=== PATIENT | male | born 1950 | race Caucasian/White ===

== ENCOUNTER 2017-05-22 05:58 | Emergency (ER) | payer MEDICARE ==
[~2017-05-22] VITALS: Ht 172.7 cm; Wt 122.5 kg
[~2017-05-22 05:58] MED LIST: CIPRO 500MG TA500 MG PO; CIPROFLOXACIN500 MG PO; FLEXERIL10 MG PO; FLOMAX0.4 MG PO; KEFLEX 250MG.250 MG PO; KEFLEX750 MG PO; LISINOPRIL 20MG20 MG PO; LOPRESSOR50 MG PO; METHADONE HCL5 MG PO; MINOCYCLINE 10100 MG PO; MOTRIN 400MG.400 MG PO; RESTORIL 15MG C15 MG PO; TAMSULOSIN HYD0.4 MG PO; TYLENOL ES500 M1 PO; XANAX 0.25MG0.25 MG PO; XANAX 1MG TABLET1 MG PO; ZITHROMAX Z PA250 MG PO
--- OUTSIDE RECORDS SUMMARY | 2017-05-22 06:07 | External Medical Summary Rpt | CCD ---
Author Author , SHANA SALDANA Address Unknown Phone Care Team Providers Care Hoisting Engineer Pile Driving Name Role Phone Steven Mao MD, Unavailable Unavailable Steven Mao MD Purpose Continuity of Care Document - 11-25-2012 through 2016 Problems Code Diagnosis DOS Provider Status 486 Lobar [place] pneumonia [facility] [id number] Hemoptysis [facility] I50.9 HEART FAILURE, UNSPECIFIED J40 BRONCHITIS, NOT SPECIFIED ACUTE OR CHRONIC N45.1 EPIDIDYMITI S Allergies, Adverse Reactions, Alerts Type Drug Allergy Adverse Reaction to Substance Substance Reaction Severity Pregabalin [id number]-IQUX/THROAT Severe Medications Na ND Rx Da Fi Fi Am Da Di Ph RX Ph St me C No te ll ll ou ys ag ar # ys at rm s nt no ma ic us Or Da si cy ia de te s n re d IP 00 07 0 No RA 48 -1 T- 70 0- Lo AL 20 20 ng BU 10 13 er T 1 0. Ac 5- ti 3( ve 2. 5) MG /3 ML ME 00 07 0 No TH 05 -1 AD 48 0- Lo ON 55 20 ng E 42 13 er HC 4 L Ac 10 ti ve MG TA BL ET ON 00 07 0 No DA 64 -1 NS 16 0- Lo ET 08 20 ng RO 02 13 er N 5 HC Ac L ti 4 ve MG /2 ML AL FU 00 07 0 No RO 40 -1 SE 96 0- Lo UT 10 20 ng DE 21 13 er 0 10 Ac 0 ti MG ve /1 0 ML AL 63 07 0 No PI 73 -1 RI 90 0- Lo N 43 20 ng 81 40 13 er 1 MG Ac ti CH ve EW AB LE TA BL ET CE 00 07 0 No FT 40 -0 RI 97 9- Lo AX 33 20 ng ON 30 13 er E 4 1 Ac GM ti ve AL So 00 07 0 No d 07 -0 Ch 47 9- Lo lo 10 20 ng ri 11 13 er de 3 Ac 0. ti 9% ve 50 ML Ad v AZ 00 07 1 No IT 40 -0 HR 90 9- Lo OM 14 20 ng YC 41 13 er IN 1 Ac I. ti V. ve 50 0 MG AL SO 00 07 1 No DI 40 -0 UM 97 9- Lo 98 20 ng CH 30 13 er LO 9 RI Ac DE ti ve 0. 9% SO RICKEY TI ON ON 00 07 0 No DA 64 -0 NS 16 9- Lo ET 08 20 ng RO 02 13 er N 5 HC Ac L ti 4 ve MG /2 ML AL MA 00 07 0 No PA 90 -0 P 41 9- Lo 32 98 20 ng 5 26 13 er MG 1 Ac TA ti BL ve ET TR 00 05 0 No IP 16 -2 LE 80 2- Lo 01 20 ng AN 20 13 er TI 9 BI Ac OT ti IC ve OI NT ME NT Vital Signs 01-13-2013 17:20 Name Value Interpretat Reference Comment ion Range Body 98.1 [degF] Temperature BP 52 mm[Hg] Diastolic BP Systolic 94 mm[Hg] Heart 100 /min Rate/Pulse 01-13-2013 16:00 Name Value Interpretat Reference Comment ion Range O2% 95 % Respiratory 20 /min Rate 01-12-2013 23:41 Name Value Interpretat Reference Comment ion Range Height 172.72 cm Weight 117.936 kg Measured 01-12-2013 21:31 Name Value Interpretat Reference Comment ion Range Body 101 [degF] Temperature BP 118 mm[Hg] Diastolic BP Systolic 140 mm[Hg] Heart 128 /min Rate/Pulse O2% 96 % Respiratory 28 /min Rate Weight 0 [oz_av] Measured 11-25-2012 03:32 Name Value Interpretat Reference Comment ion Range BP 74 mm[Hg] Diastolic BP Systolic 127 mm[Hg] Heart 103 /min Rate/Pulse O2% 95 % Respiratory 20 /min Rate Results Labs Lab Lab Date Result Refere Interp Status Commen Order Detail nces retati t Range on ARTERIAL BLOOD GAS (01-13-2013 15:14) ARTERIA 7.48 7.35-7. complet L PH 013 MMOL/L 45 ed 15:14 ARTERIA 34.0 35.0-45 complet L PCO2 013 MMHG .0 ed 15:14 ARTERIA 60.9 80-100 complet L PO2 013 MMHG ed 15:14 ARTERIA 24.7 22.0-26 complet L HCO3 013 MMOL/L .0 ed 15:14 ARTERIA 25.7 23-27 complet L TCO2 013 MMOL/L ed 15:14 Base 1.2 -2.4-+2 complet excess 013 MMOL/L .3 ed BldA-sC 15:14 nc ARTERIA 94.0 % 90-100 complet L O2 013 ed SAT 15:14 OXYGEN 28% complet 013 ed 15:14 Arteria N/A complet l 013 ed patency 15:14 Wrist a SOURCE R complet 013 BRACHIA ed 15:14 L ARTERIAL BLOOD GAS (01-13-2013 11:04) ARTERIA 7.44 7.35-7. complet L PH 013 MMOL/L 45 ed 11:04 ARTERIA 29.3 35.0-45 complet L PCO2 013 MMHG .0 ed 11:04 ARTERIA 72.6 80-100 complet L PO2 013 MMHG ed 11:04 ARTERIA 19.6 22.0-26 complet L HCO3 013 MMOL/L .0 ed 11:04 ARTERIA 20.5 23-27 complet L TCO2 013 MMOL/L ed 11:04 Base -4.5 -2.4-+2 complet excess 013 MMOL/L .3 ed BldA-sC 11:04 nc ARTERIA 95.9 % 90-100 complet L O2 013 ed SAT 11:04 OXYGEN 3LPM complet 013 ed 11:04 Arteria N/A complet l 013 ed patency 11:04 Wrist a SOURCE R complet 013 BRACHIA ed 11:04 L Glucose BldC Glucomtr-[facility] (01-13-2013 10:50) Glucose 170 70-110 complet BldC 013 mg/dl ed Glucomt 10:50 r-nc BNP Bld-[facility] (01-13-2013 10:44) BNP 140 0-100 complet Bld-mCn 013 pg/mL ed c 10:44 D Dimer PPP (01-13-2013 10:44) D Dimer 01-13- 420 0-400 High complet PPP 013 ng/mL alert ed 10:44 CBC with AUTO DIFF (01-13-2013 06:35) WBC # 07-10-2 22.8 4.8-10. complet Bld 013 K/MM3 8 ed Auto 06:35 RBC # 10-2 5.31 4.6-6.2 complet Bld 013 M/mm3 ed Auto 06:35 Hgb 10-2 15.1 14.1-18 complet Bld-mCn 013 g/dL .0 ed c 06:35 Hct Fr 47.0 % 42.0-52 complet Bld 013 .0 ed 06:35 MCV RBC 88.5 fl 82.2-97 complet 013 .8 ed 06:35 MCH RBC 28.4 pg 27-31.2 complet Qn 013 ed Auto 06:35 MEAN 32.1 31.8-35 complet CORPUSC 013 g/dl .4 ed ULAR 06:35 HGB CONC RDW RBC 01-13- 14.7 % 11.5-17 complet Auto 013 .5 ed 06:35 Platele 01-13-2 112 142-424 complet t Bld 013 K/mm3 ed Ql 06:35 Manual Granulo 10-2 92.5 % 37.0-80 complet cytes 013 .0 ed Fr Bld 06:35 Auto LYMPH % 10-2 5.9 % 10-50 complet 013 ed 06:35 Monocyt 10-2 1.6 % 1.7-9.3 complet es Fr 013 ed Bld 06:35 Auto Granulo 07-10-2 21.1 1.3-8.0 complet cytes # 013 K/mm3 ed Bld 06:35 Auto Lymphoc -10-2 1.3 0.7-4.5 complet ytes Fr 013 K/mm3 ed Bld 06:35 Auto Monocyt -10-2 0.4 0.1-1.0 complet es # 013 K/mm3 ed Bld 06:35 Auto MYCOPLASMA IGM (RAPID) (01-12-2013 21:50) MYCOPLA NON-HAYLEE NONREAC complet SMA IGM 013 CTIVE TIVE ed 21:50 (RAPID) COMPREHENSIVE METABOLIC PANEL (01-12-2013 21:48) Glucose 132 74-106 complet 013 mg/dL ed Bld-mCn 21:48 c BUN 14 7-18 complet Bld-mCn 013 mg/dL ed c 21:48 Creat 1.6 0.8-1.3 complet SerPl-m 013 mg/dL ed Cnc 21:48 ESTIMAT 79 50-200 complet ED 013 ML/MIN ed CREATIN 21:48 INE CLEARAN CE GFR 44 Greater complet (ESTIMA 013 ML/MIN than ed KANWAL) 21:48 60 Sodium 137 136-145 complet SerPl-s 013 mmoL/L ed Cnc 21:48 Potassi 3.7 3.5-5.1 complet um 013 mmoL/L ed SerPl-s 21:48 Cnc Chlorid 100 98-107 complet e 013 mmoL/L ed SerPl-s 21:48 Cnc CO2 27 21.0-32 complet SerPl-s 013 mmoL/L .0 ed Cnc 21:48 Calcium 8.5 8.5-10. complet 013 mg/dL 1 ed SerPl-m 21:48 Cnc Prot 7.0 6.4-8.2 complet SerPl-m 013 gm/dL ed Cnc 21:48 Albumin 3.3 3.4-5.0 complet 013 gm/dL ed SerPl-m 21:48 Cnc Globuli 3.7 1.3-3.2 complet n 013 gm/dL ed Ser-mCn 21:48 c Albumin 0.9 UNK 1.1-1.8 complet /Glob 013 ed SerPl-m 21:48 Rto Bilirub 2.5 0.2-1.0 complet 013 mg/dL ed SerPl-m 21:48 Cnc AST 10 U/L 15-37 complet SerPl-c 013 ed Cnc 21:48 ALT 07-09-2 35 U/L 30-65 complet SerPl-c 013 ed Cnc 21:48 ALP 07-09-2 114 U/L 50-136 complet SerPl-c 013 ed Cnc 21:48 CBC with AUTO DIFF (01-12-2013 21:48) WBC # 07-09-2 18.0 4.8-10. complet Bld 013 K/MM3 8 ed Auto 21:48 RBC # 07-09-2 5.48 4.6-6.2 complet Bld 013 M/mm3 ed Auto 21:48 Hgb 07-09-2 16.5 14.1-18 complet Bld-mCn 013 g/dL .0 ed c 21:48 Hct Fr -09-2 49.1 % 42.0-52 complet Bld 013 .0 ed 21:48 MCV RBC -09-2 89.6 fl 82.2-97 complet 013 .8 ed 21:48 MCH RBC 09-2 30.2 pg 27-31.2 complet Qn 013 ed Auto 21:48 MEAN --2 33.7 31.8-35 complet CORPUSC 013 g/dl .4 ed ULAR 21:48 HGB CONC RDW RBC 09-2 13.5 % 11.5-17 complet Auto 013 .5 ed 21:48 Platele 07-09-2 150 142-424 complet t Bld 013 K/mm3 ed Ql 21:48 Manual MEAN 01-12-2 7.9 fl 7.4-10. complet PLATELE 013 4 ed T 21:48 VOLUME Granulo -09-2 90.7 % 37.0-80 complet cytes 013 .0 ed Fr Bld 21:48 Auto LYMPH % -09-2 5.3 % 10-50 complet 013 ed 21:48 Monocyt 07-09-2 3.0 % 1.7-9.3 complet es Fr 013 ed Bld 21:48 Auto Eosinop 07-09-2 0.8 % 0.1-12. complet hil Fr 013 0 ed Bld 21:48 Auto Basophi 07-09-2 0.2 % 0.1-2.0 complet ls Fr 013 ed Bld 21:48 Auto Granulo 07-09-2 16.3 1.3-8.0 complet cytes # 013 K/mm3 ed Bld 21:48 Auto Lymphoc 07-09-2 0.9 0.7-4.5 complet ytes Fr 013 K/mm3 ed Bld 21:48 Auto Monocyt 07-09-2 0.5 0.1-1.0 complet es # 013 K/mm3 ed Bld 21:48 Auto Eosinop 07-09-2 0.2 0.0-0.4 complet hil # 013 K/mm3 ed Bld 21:48 Auto Basophi 07-09-2 0.0 0-0.2 complet ls # 013 K/MM3 ed Bld 21:48 Auto Encounters Encounter Start End Date Code Location Performer Type Date Inpatient JULIA Fallon MD ([place]) 3 21:52 3 17:20 [facility] JENELLE Swenson ([place]) 3 03:03 3 03:33 [facility] Larry
--- OUTSIDE RECORDS SUMMARY | 2017-05-22 06:07 | External Medical Summary Rpt | CCD ---
Author Author , SHANA SALDANA Address Unknown Phone [email or web address] Care Team Providers Care Business Development Manager Name Role Phone Steven Mao MD, Unavailable Unavailable Steven Mao MD Purpose Continuity of Care Document - 11-25-2012 through 2016 Problems Code Diagnosis DOS Provider Status 486 Lobar [place] pneumonia [facility] [id number] Hemoptysis [facility] I50.9 HEART FAILURE, UNSPECIFIED J40 BRONCHITIS, NOT SPECIFIED ACUTE OR CHRONIC N45.1 EPIDIDYMITI S Allergies, Adverse Reactions, Alerts Type Drug Allergy Adverse Reaction to Substance Substance Reaction Severity Pregabalin [id number]-SGRM/THROAT Severe Medications Na ND Rx Da Fi [...] RO 40 -1 SE 96 0- Lo CA 10 20 ng DE 21 13 er [...] 013 BRACHIA ed 11:04 L Glucose BldC Glucomtr-[facility] (01-13-2013 10:50) Glucose 170 70-110 complet BldC 013 mg/dl ed Glucomt 10:50 r-nc BNP Bld-[facility] (01-13-2013 10:44) BNP 140 0-100 complet Bld-mCn [...] Fallon MD ([place]) 3 21:52 3 17:20 [facility] JENELLE Swenson (ER) 3 03:03 3 03:33 [facility] Larry
--- OUTSIDE RECORDS SUMMARY | 2017-05-22 06:08 | External Medical Summary Rpt | CCD ---
Demographics Preferred Language Egyptian Marital Status Unknown Yazidism Affiliation Unknown Race Unknown Ethnic Group Unknown Author Author , SHANA SALDANA Address Unknown Phone Immunization No patient found.
--- OUTSIDE RECORDS SUMMARY | 2017-05-22 06:08 | External Medical Summary Rpt | CCD ---
Demographics Preferred Language Gibraltarian Marital Status Unknown Evangelical Affiliation Unknown Race Unknown Ethnic Group Unknown Author Author , SHANA SALDANA Address Unknown Phone Immunization No patient found.
--- OUTSIDE RECORDS SUMMARY | 2017-05-22 06:08 | External Medical Summary Rpt ---
Author Author [employer]NA [employer], [employer] Organization [employer] Address Unknown Phone Unavailable Results Natriutietic peptide B [Mass/volume] in Serum or Plasma Observa Value Referen Units Interpr Notes Date tion ce etation Range Natriutie 0 - 100 pg/mL Normal No Dec 19 tic informati 2017 9:58 peptide B on in PM source [Mass/vol data ume] in Serum or Plasma Lactate [Moles/volume] in Blood Observa Value Referen Units Interpr Notes Date tion ce etation Range Lactate 0.4 - 2.0 mmol/L Normal No Dec 19 [Moles/vo informati 2016 9:57 lume] in on in PM Blood source data CBC W Auto Differential panel in Blood Observa Value Referen Units Interpr Notes Date tion ce etation Range Basophils 0 - 0.2 K/MM3 Normal No Dec 19 informati 2016 9:57 [#/volume on in PM ] in source Blood by data Automated count Basophils 0.1 - 2.0 % Normal No Dec 19 / informati 2017 9:57 leukocyte on in PM s in source Blood by data Automated count Eosinophi 0.0 - 0.4 K/mm3 Normal No Dec 19 ls informati 2016 9:57 [#/volume on in PM ] in source Blood by data Automated count Eosinophi 0.1 - % Normal No Dec 19 ls/100 12.0 informati 2016 9:57 leukocyte on in PM s in source Blood by data Automated count Granulocy 1.3 - 8.0 K/mm3 Normal No Dec 19 vita informati 2016 9:57 [#/volume on in PM ] in source Blood by data Automated count Granulocy 37.0 - % Normal No Dec 19 vita/100 80.0 informati 2016 9:57 leukocyte on in PM s in source Blood by data Automated count Hematocri 42.0 - % Normal No Dec 19 t [Volume 52.0 informati 2016 9:57 on in PM Fraction] source of Blood data Hemoglobi 14.1 - g/dL Normal No Dec 15 n 18.0 informati 2017 9:57 [Mass/vol on in PM ume] in source Blood data Lymphocyt 0.7 - 4.5 K/mm3 Normal No Dec 15 es informati 2017 9:57 [#/volume on in PM ] in source Unspecifi data ed specimen by Automated count Lymphocyt 10 - 50 % Normal No Dec 15 es informati 2017 9:57 [#/volume on in PM ] in source Unspecifi data ed specimen by Automated count Erythrocy 27 - 31.2 pg Normal No Dec 15 te mean informati 2017 9:57 corpuscul on in PM ar source hemoglobi data n [Entitic mass] Erythrocy 31.8 - g/dl Normal No Dec 15 te mean 35.4 informati 2017 9:57 corpuscul on in PM ar source hemoglobi data n concentra tion [Mass/vol ume] by Automated count Erythrocy 82.2 - fl Normal No Dec 19 te mean 97.8 informati 2017 9:57 corpuscul on in PM ar volume source [Entitic data volume] by Automated count Monocytes 0.1 - 1.0 K/mm3 Normal No Dec 15 informati 2017 9:57 [#/volume on in PM ] in source Blood by data Automated count Monocytes 1.7 - 9.3 % Normal No Dec 15 /100 informati 2017 9:57 leukocyte on in PM s in source Blood by data Automated count Platelet 7.4 - fl Normal No Dec 15 mean 10.4 informati 2017 9:57 volume on in PM [Entitic source volume] data in Blood by Automated count Platelets 142 - 424 K/mm3 Normal No Dec 15 informati 2017 9:57 [#/volume on in PM ] in source Blood data Erythrocy 4.6 - 6.2 M/mm3 Normal No Dec 15 vita informati 2017 9:57 [#/volume on in PM ] in source Amniotic data fluid Erythrocy 11.5 - % Normal No Dec 15 te 17.5 informati 2017 9:57 distribut on in PM ion width source [Entitic data volume] by Automated count Leukocyte 4.8 - K/MM3 Normal No Dec 15 s 10.8 informati 2017 9:57 [#/volume on in PM ] in source Blood data
[2017-05-22 06:32] LABS: HEMOGLOBIN 15.4 g/dL (14.1-18.0); LYMPH # 1.5 K/mm3 (0.7-4.5)
--- NOTE | 2017-05-22 06:47 | Emergency Room Report ---
See Addendum History of Present Illness Time Seen by MD Crandall Presenting Problem in Triage Pt arrived:Walked Presenting Problem:C/O COUGHING, AND SHORTNESS OF BREATH, PATIENT SITTING ON EDGE OF STRETCHER ENCOURAGE TO SIT BACK ON BED. PATIENT REFUSING, STATES I TOLD YOU I CAN'T BREATH Onset of symptoms date/time:05/15/17/ or onset unknown for:MEDICAL HX UNKNOWN Treatment Prior to Arrival: [facility]IDENT [facility]UC[facility]UTION Provided by: Sepsis Risk Assessment: Temp: 98.4 B/P: 149/84 MAP: 105 Pulse: 110 Resp: 20 Recent fever? N Clinical Suspician of Infection? N Mental Status: 1 - Regular (Normal Baseline) Sepsis Risk:Low Sepsis Risk Have you (or family members/close friends) recently traveled outside the [place]? N If Yes, where/when: Have you had exposure to infectious disease within the past month? N TB? Other? 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 No Angina: No IN: No Hypertension? Yes Hyperlipidemia? Yes CHF? No DVT? Yes PE? No COPD? Yes Asthma? No Anemia? No GERD? No Gastric ulcers? No GI Bleed? No Hernia? Yes Thyroid Problems? No Hypothyroidism? No CVA? No Seizures? No Diabetes? No Insulin Dependent: No Insulin Pump: No Home FSBS? No Renal Insuffiency? No End Stage Renal Disease? No UTI? No Stones? Yes BPH? No GB Disease: No Nephritic Syndrome? No Asplenia? No Hepatitis? Yes Sickle Cell Disease? No Arthritis? Yes Migraines? No Cataracts? No Glaucoma? No MRSA? Yes HIV? No TB? No Anxiety? No Depression? No Cancer? No Immunization Hx DT/Tetanus 5-10 YRS Flu NEVER Pneumonia REFUSES Surgical Hx Previous Surgery?Y FACE SURG SKIN GRAFTS ON LEGS EXPLORATORY LAP SMALL INTESTINE REPAIR NECK FRACTURE SPLEEN DAMAGE MULTIPLE RIB FRACTURES Family History Family Hx Diabetes Yes CAD Yes Hypertension Yes Hyperlipidemia Yes Cancer Yes TB No Social History Smoking Hx Smoker: Current Every Day Smoker Tobacco: Yes Type Cigarettes Packs/day 1 1/2 - 2 Packs Are you/the child exposed to second-hand smoke: No Alcohol Alcohol: No Drugs none Review of Systems All Other Systems Reviewed and Negative Constitutional denies fever Eyes denies drainage ENT denies: ear discharge, epistaxis, throat pain. Respiratory cough, shortness of breath, denies wheezing Cardiovascular denies chest pain, denies palpitations, denies syncope Gastrointestinal denies abdominal pain, denies diarrhea, denies vomiting Genitourinary denies: dysuria, frequency, hesitancy, hematuria. Musculoskeletal denies back pain, denies joint pain, denies neck pain Skin denies rash Psychiatric/Neurological denies headache, denies seizure Physical Exam Vital Signs Vital Signs Date Time Temp Pulse Resp B/P Pulse O2 O2 Flow FiO2 Ox Delivery Rate 05/22 0743 97.4 103 22 135/83 97 2 05/22 0640 94 ROOM AIR 05/22 0628 20 93 05/22 0603 98.4 110 34 149/84 93 - WBC >12,000 or <4,000 or 10% bands? 2 or more SIRS Criteria Met? B/P:135/83 MAP:105 Creatinine >2.0? UA output<0.5ml/kg/hr for 2 hrs? Platelet count >100,000? Lactate >2.0mmol/1? INR >1.2 or PTT > than 60 sec? Evidence of Organ Dysfunction? Provider documented clinical suspician of infection? N Sepsis Criteria Count: 1 Sepsis Risk: Low Sepsis Risk General Appearance no apparent distress Eye Exam - bilateral eye PERRL, bilateral eye EOMI Ear, Nose, Throat normal ENT inspection Neck supple Respiratory Status No: respiratory distress. Lung Sounds bilateral: rhonchi. 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 No Results/Orders Laboratory Tests 05/22/17 0620: Lactic Acid 1.0 05/22/17 0620: B-Natriuretic Peptide 245 H 05/22/17 0620: Sodium 139, Potassium 4.6, Chloride 104, Carbon Dioxide 24, BUN 14, Creatinine 1.0, Estimated Creat Clear 128, Estimated GFR (MDRD) 75, Glucose 113 H, Calcium 8.8, Total Bilirubin 1.4 H, AST 20, ALT 23, Alkaline Phosphatase 79, Creatine Kinase 157, CK-MB (CK-2) Rel Index 1.0, CK and CKMB Interp 1.5, Troponin I 0.02, Total Protein 7.2, Albumin 3.6, Globulin 3.6 H, Albumin/Globulin Ratio 1.0 L, WBC 10.2, RBC 5.44, Hgb 15.4, Hct 48.1, MCV 88.4, RDW 13.0, Plt Count 193, MPV 7.8, Gran % 77.8, Gran # 8.0, Lymphocytes % 15.0, Monocytes % 5.9, Eosinophils % 1.2, Basophils % 0.2, Lymphocytes # 1.5, Monocytes # 0.6, Eosinophils # 0.1, Basophils # 0.0, PUBS MCHC 32.0, MCH 28.3 Current Medication Orders Sig/Janette Start time Last Medication Dose Route Stop Time Status Admin Albuterol 0 .STK-MED ONE 05/22 811 DC IH Levofloxacin 0 .STK-MED ONE 05/22 803 DC .ROUTE Levofloxacin 500 MG ONCE ONE 05/22 800 DC 05/22 PO 05/22 08 0815 Methylprednisolone 125 MG ONCE ONE 05/22 730 DC 05/22 Sodium Succinate IV 05/22 731 07 Methylprednisolone 0 .STK-MED ONE 05/22 729 DC Sodium Succinate .ROUTE Furosemide 40 MG ONCE ONE 05/22 700 DC 05/22 IV 05/22 701 0652 Furosemide 0 .STK-MED ONE 05/22 651 DC .ROUTE Albuterol/Ipratropium 0 .STK-MED ONE 05/22 633 DC INH Albuterol/Ipratropium 3 ML ONCE ONE 05/22 06 DC 05/22 INH 05/22 631 0640 Methylprednisolone 125 MG ONCE ONE 05/22 630 DC 05/22 Sodium Succinate IV 05/22 631 0620 Methylprednisolone 0 .STK-MED ONE 05/22 620 DC Sodium Succinate .ROUTE Sodium Chloride 10 ML PRN PRN 05/22 06 AC IV 05/23 0601 Orders Procedure Date/time Status RT Pulse Oximetry, Provide 05/22 06 Active RT O2 Installation/Change Set 05/22 06 Active RT O2 Therapy, Monitor/[place]i 05/22 06 Active RT Aerosol Treatment, Provide 05/22 655 Active RT Aerosol Treatment, Provide 05/22 655 Active BRAIN NATRIURETIC PEPTIDE 05/22 0647 Complete 12 LEAD EKG-MANJEETSON (INITIAL) 05/22 06 Active RT REQUEST DUONEB 05/22 06 Active CULTURE, BLOOD 05/22 06 Active LACTIC ACID 05/22 06 Complete ELECTROCARDIOGRAM REQUEST 05/22 06 Active OXYGEN REQUEST 05/22 06 Active ARTERIAL BLOOD GAS REQUEST 05/22 06 Active CHEST-PORTABLE 05/22 06 Active IV SALINE LOCK 05/22 06 Active CBC WITH AUTO DIFF 05/22 06 Complete CARDIAC ENZYMES 05/22 06 Complete CHEM 12 PROFILE 05/22 06 Complete 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 ST/Twave chgs XRAY/CT/US XRAY/CT/US XRAY chest XR interpretation by reviewed by me Xray Results abnormal (chf) Departure Departure Time of Disposition 08 Disposition DC Home or Self Care(routine) Clinical Impression Primary Impression: CHF (congestive heart failure) Qualifiers: Congestive heart failure type: unspecified congestive heart failure type Congestive heart failure chronicity: unspecified congestive heart failure chronicity Qualified Code: I50.9 - Heart failure, unspecified Secondary Impressions: Bronchitis Condition STABLE Referrals SHANNON PICKARD APRN (Family) Patient Instructions DI for Cough -- Adult Additional Instructions use meds and see pcp today for follow up Discharge Counseling Counseled pt/family regarding diagnosis, test results, medications/RX, follow up needs Prescriptions Current Visit Scripts BENZONATATE (Benzonatate) 100 MG PO TID #15 CAP Levofloxacin (Levaquin 500MG) 500 MG PO DAILY #7 TAB Prednisone (Prednisone 20MG) 20 MG PO BID #10 TAB ED Critical Care Critical Care No at 0816
[2017-05-22] MEDS ORDERED: PREDNISONE 20MG20 MG PO (08:15)
[2017-05-22] MEDS ORDERED: TESSALON PERLE100 MG PO (08:15)
[2017-05-22] MEDS ORDERED: LEVAQUIN500 MG PO (08:15)
[2017-05-22 08:20] VITALS: BP 125/87
--- NOTE | 2017-05-22 10:09 | RADIOLOGY REPORT PS360 ---
CHEST-PORTABLE HISTORY: SHORTNESS OF BREATH ORDERING PHYSICIAN: Gil Fallon MD PATIENT AGE: 66 years COMPARISON: 12/19/2016 FINDINGS: There is cardiomegaly without failure. There is chronic coarsening of the bronchovascular markings which is worse in the left lung compared to the previous exam with some blunting of the left CP angle. No acute bony anomalies. IMPRESSION: Left-sided bronchopneumonia.
== END 2017-05-22 08:21 | disposition home or self-care (01) ==
LOC: ER 05:58
PROVIDERS: Emergency Medicine
DX: I50.9 Heart failure, unspecified (principal); J20.9 Acute bronchitis, unspecified; R06.02 Shortness of breath; F17.210 Nicotine dependence, cigarettes, uncomplicated; I10 Essential (primary) hypertension; E78.5 Hyperlipidemia, unspecified; J44.9 Chronic obstructive pulmonary disease, unspecified